=== PATIENT | male | born 1985 ===

== ENCOUNTER 2019-04-24 00:40 | Emergency (ER) | payer OTHER ==
[~2019-04-24] VITALS: Ht 177.8 cm; Wt 61.2 kg
[2019-04-24] MEDS ORDERED: KETO10TA2 PO (03:22)
== END 2019-04-24 04:12 | disposition home or self-care (01) ==
LOC: ER 00:40
DX: S90.32XA Contusion of left foot, initial encounter (principal); S90.31XA Contusion of right foot, initial encounter; S60.211A Contusion of right wrist, initial encounter; W18.09XA Striking against other object with subsequent fall, initial encounter; Y93.01 Activity, walking, marching and hiking; Y92.413 State road as the place of occurrence of the external cause; Y99.8 Other external cause status